=== PATIENT | male | born 1940 | race Caucasian/White ===

== ENCOUNTER 2022-12-03 16:09 | Emergency (ER) | payer MEDICARE, OTHER | END 2022-12-03 18:15 | disposition home or self-care (01) | LOC: JD.ED 16:09 | DX: M79.89 Other specified soft tissue disorders (principal); I11.0 Hypertensive heart disease with heart failure; I50.9 Heart failure, unspecified; Z79.899 Other long term (current) drug therapy | CPT/HCPCS: 93971-26-LT; 93971-LT; 99283 ==